=== PATIENT | female | born 1940 | race Caucasian/White ===

== ENCOUNTER → 2016-08-09 | Outpatient (CLI) | payer MEDICARE ==
[~2016-08-09] MED LIST: ALPH200C3 PO; B COTAB3 PO; CALC600T34 PO; CHLO20TA PO; CHOL1CAP24 PO; CO Q100C9 PO; DOCU1CAP39 PO; FISHCAP PO; GABA300C3 PO; MAGN400C2 PO; MSM1000C4 PO; OLIV500C PO; OXYC-360 PO; PERC10TA27 PO; POLY119S PO; VITA400C70 PO; VITA500T83 PO; [UNRECOGNIZED DRUG - CODE] PO; [UNRECOGNIZED DRUG - CODE] PO; [UNRECOGNIZED DRUG - CODE] PO
--- NOTE | 2016-08-09 16:08 | RADRPT ---
EXAM DATE/TIME: 08/09/2016 13:57 [place] COMPARISON: No previous studies available for comparison. INDICATIONS : Gerd FLUORO TIME: 2.1 minutes IMAGE COUNT: 12 CONTRAST: 1. Liquid E-Z Paque Barium Sulfate (60% w/v, 41% w.w) MEDICAL HISTORY : Vascular disease SURGICAL HISTORY : dilitation ENCOUNTER: Initial ACUITY: 3 weeks PAIN SCORE: 0/10 LOCATION: Bilateral neck FINDINGS: Air-contrast views of the hypopharynx demonstrate a normal mucosal surface without filling defect. R apid sequence images of the hypopharynx and cervical esophagus during the passage of barium demonstra te a normal swallowing function. No evidence of aspiration. Multiphasic examination of the esophagu s demonstrates no esophageal fold thickening, ulceration, or filling defect. Small sliding hiatal her humberto. No reflux identified. CONCLUSION: Small sliding hiatal hernia. Sohail Caldwell MD on August 09, 2016 at 16:06 Board Certified Radiologist. This report was verified electronically.
== END ==
LOC: HRAD 13:49
DX: R13.10 Dysphagia, unspecified (principal); K21.9 Gastro-esophageal reflux disease without esophagitis
CPT/HCPCS: 74230